=== PATIENT | male | born 1950 | race Caucasian/White ===

== ENCOUNTER 2020-08-19 19:27 | Emergency (ER) | payer BC, OTHER ==
[~2020-08-19] VITALS: Ht 177.8 cm; Wt 72.6 kg
[2020-08-19] MEDS ORDERED: OXYMETAZOLINE HCL 0.05 % NASAL SPRAY 15ML EACHNOSTRI ONE ×2 (20:00)
[2020-08-19 20:26] LABS: Basophils # (auto) 0 10 ^3/uL (0-0.2); Monocytes # (auto) 0.6 10 ^3/uL (0-1.3)
[2020-08-19 20:28] LABS: Basophils % (auto) 0.3 % (0.0-2.0); Eosinophils # (auto) 0.1 10 ^3/uL (0-0.8); Eosinophils % (auto) 0.5 % (0.0-7.0); Hematocrit 20.2 % (41.0-53.0); Lymphocytes # (auto) 2.3 10 ^3/uL (0.4-5.4); Lymphocytes % (auto) 20.6 % (10.0-50.0); Mean Corpuscular Hemoglobin 35.8 pg (28.0-32.0); Mean Corpuscular Hgb Conc. 34.4 g/dL (32.0-36.0); Mean Corpuscular Volume 103.8 fL (80.0-100.0); Monocytes % (auto) 5.4 % (0.0-12.0); Neutrophils % (auto) 73.2 % (37.0-80.0); Nucleated Red Blood Cells % 0.1 %; Red Blood Cells 1.95 10^6/uL (4.5-5.90); Red Cell Distribution Width 13.1 % (11.8-14.3); White Blood Cell 10.9 10^3/uL (4.4-10.8)
[2020-08-19] MEDS ORDERED: SALINE 0.65 % NASAL SPRAY 45ML BOTTLE EACHNOSTRI ONE (20:30)
[2020-08-19 20:41] LABS: Albumin 3.3 g/dL (3.4-5.0); Calcium 8.5 mg/dL (8.5-10.1); Potassium 4.2 mmol/L (3.5-5.1)
[2020-08-19 20:45] LABS: BUN/Creatinine Ratio 23.1; Bilirubin, Total 0.3 mg/dL (0.2-1.0); Total Protein 6.3 g/dL (6.4-8.2)
[2020-08-19 20:46] LABS: INR 1.05 (0.9-1.15); Partial Thromboplastin Time 22.2 sec (23.0-31.2)
[2020-08-19 23:00] VITALS: BP 127/76
[2020-08-19 23:15] VITALS: BP 119/74
[2020-08-20 01:15] VITALS: BP 147/75
[2020-08-20 01:30] VITALS: BP 134/72
[2020-08-20 03:15] VITALS: BP 158/75
== END 2020-08-20 04:47 | disposition home or self-care (01) ==
LOC: ER 19:28
DX: D62 Acute posthemorrhagic anemia (principal); R04.0 Epistaxis
CPT/HCPCS: 36415; 36430; 80053; 85025; 85610; 85730; 86850; 86900; 86901; 86920; 99285; J7040; P9016

== ENCOUNTER 2020-09-04 11:41 | Inpatient (IN) | payer BC, OTHER ==
[~2020-09-04] VITALS: Ht 177.8 cm; Wt 62.5 kg
[2020-09-04] VITALS (12 sets, daily range): BP systolic 107–151; BP diastolic 33–76
[2020-09-04 12:28] LABS: Basophils # (auto) 0 10 ^3/uL (0-0.2); Basophils % (auto) 0.2 % (0.0-2.0); Eosinophils # (auto) 0 10 ^3/uL (0-0.8); Eosinophils % (auto) 0.1 % (0.0-7.0); Mean Corpuscular Volume 105.7 fL (80.0-100.0); Neutrophils # (auto) 5.9 10 ^3/uL (1.6-8.6)
[2020-09-04 12:30] LABS: Lymphocytes # (auto) 1.4 10 ^3/uL (0.4-5.4); Lymphocytes % (auto) 17.6 % (10.0-50.0); Mean Corpuscular Hemoglobin 35.7 pg (28.0-32.0); Mean Corpuscular Hgb Conc. 33.8 g/dL (32.0-36.0); Monocytes # (auto) 0.7 10 ^3/uL (0-1.3); Monocytes % (auto) 8.5 % (0.0-12.0); Neutrophils % (auto) 73.6 % (37.0-80.0); Platelet Count (auto) 225 10^3/uL (140-450); Red Blood Cells 1.42 10^6/uL (4.5-5.90); Red Cell Distribution Width 18.5 % (11.8-14.3)
[2020-09-04 12:35] LABS: Hemoglobin 5.1 g/dL (13.5-17.5)
[2020-09-04 12:42] LABS: Anion Gap 9 (5-15); Blood Urea Nitrogen 52 mg/dL (7-18); Calcium 8.7 mg/dL (8.5-10.1); Carbon Dioxide 22 mmol/L (21-32); Chloride 106 mmol/L (98-107); Glucose 115 mg/dL (74-106); INR 1.01 (0.9-1.15); Partial Thromboplastin Time 20.1 sec (23.0-31.2); Potassium 5.1 mmol/L (3.5-5.1); Sodium 137 mmol/L (136-145)
[2020-09-04 12:48] LABS: Alanine Aminotransferase 44 U/L (16-61); Alkaline Phosphatase 56 U/L (45-117); Aspartate Aminotransferase 25 U/L (15-37); Bilirubin, Total 0.2 mg/dL (0.2-1.0); GFR African American 35 mL/min; GFR Non-African American 29 mL/min; Total Protein 5.8 g/dL (6.4-8.2)
[2020-09-04] MEDS ORDERED: MORPHINE SULF INJ 2 MG/ML SYRINGE 1ML IV PRN (14:45)
[2020-09-04] MEDS ORDERED: NITROGLYCERIN 0.4 MG SL TAB SL PRN (14:45)
[2020-09-04 19:43] LABS: Urine Bacteria NONE SEEN /hpf (None Seen); Urine Blood 1+ /uL (Negative); Urine Budding Yeast MODERATE /hpf (None Seen); Urine Specific Gravity 1.017 (1.001-1.035); Urine WBC 4104 /hpf (0 - 3); Urine WBC Clumps PRESENT /hpf (None Seen)
[2020-09-04] MEDS ORDERED: TEMAZEPAM 15 MG CAP PO ONE (22:00)
[2020-09-04 23:17] LABS: Hematocrit 20.1 % (41.0-53.0)
[2020-09-05] VITALS (11 sets, daily range): BP systolic 101–167; BP diastolic 54–81
[2020-09-05 07:16] LABS: Basophils # (auto) 0 10 ^3/uL (0-0.2); Eosinophils # (auto) 0.1 10 ^3/uL (0-0.8); Lymphocytes # (auto) 1.8 10 ^3/uL (0.4-5.4); Monocytes # (auto) 0.9 10 ^3/uL (0-1.3); Neutrophils % (auto) 62.1 % (37.0-80.0)
[2020-09-05 07:19] LABS: Basophils % (auto) 0.4 % (0.0-2.0); Eosinophils % (auto) 1.1 % (0.0-7.0); Lymphocytes % (auto) 24.4 % (10.0-50.0); Mean Corpuscular Hemoglobin 33.7 pg (28.0-32.0); Mean Corpuscular Hgb Conc. 34.6 g/dL (32.0-36.0); Mean Corpuscular Volume 97.5 fL (80.0-100.0); Neutrophils # (auto) 4.5 10 ^3/uL (1.6-8.6); Nucleated Red Blood Cells % 0.2 %; Platelet Count (auto) 178 10^3/uL (140-450); Red Blood Cells 1.95 10^6/uL (4.5-5.90); Red Cell Distribution Width 19.4 % (11.8-14.3); White Blood Cell 7.3 10^3/uL (4.4-10.8)
[2020-09-05 07:32] LABS: Hemoglobin 6.6 g/dL (13.5-17.5)
[2020-09-05 07:36] LABS: Potassium 4.5 mmol/L (3.5-5.1)
[2020-09-05 07:41] LABS: BUN/Creatinine Ratio 26.1; Calcium 8.1 mg/dL (8.5-10.1)
[2020-09-05 09:03] LABS: % Iron Saturation 12.1 % (20-55)
[2020-09-05 09:15] LABS: Folate (Folic Acid) > 24.00 ng/mL (5.38-24)
[2020-09-05 10:16] LABS: Sodium Urine 41 mmol/L (40-220)
[2020-09-05 10:18] LABS: Creatinine, Urine 72 mg/dL (30.0-125.0)
[2020-09-05 10:23] LABS: Protein, Urine 116.6 mg/dL (0.0-11.9)
[2020-09-05] MEDS: TAMSULOSIN HYDROCHLORIDE 0.4 MG CAP PO SCH (17:37)
[2020-09-05] MEDS: PHENYLEPHRINE HCL 0.5 % NASAL SPRAY 15ML PRN ×2 (17:42→23:27)
[2020-09-05 20:37] LABS: Basophils # (auto) 0 10 ^3/uL (0-0.2); Eosinophils # (auto) 0 10 ^3/uL (0-0.8); Hematocrit 22.6 % (41.0-53.0); Hemoglobin 7.8 g/dL (13.5-17.5); Lymphocytes # (auto) 1.8 10 ^3/uL (0.4-5.4); Nucleated Red Blood Cells % 0.1 %; White Blood Cell 8.3 10^3/uL (4.4-10.8)
[2020-09-05 20:39] LABS: Basophils % (auto) 0.2 % (0.0-2.0); Eosinophils % (auto) 0.4 % (0.0-7.0); Lymphocytes % (auto) 21.3 % (10.0-50.0); Mean Corpuscular Hemoglobin 32.4 pg (28.0-32.0); Mean Corpuscular Hgb Conc. 34.6 g/dL (32.0-36.0); Mean Corpuscular Volume 93.7 fL (80.0-100.0); Monocytes # (auto) 0.9 10 ^3/uL (0-1.3); Monocytes % (auto) 11.1 % (0.0-12.0); Neutrophils # (auto) 5.6 10 ^3/uL (1.6-8.6); Platelet Count (auto) 157 10^3/uL (140-450); Red Blood Cells 2.41 10^6/uL (4.5-5.90); Red Cell Distribution Width 17.8 % (11.8-14.3)
[2020-09-05] MEDS ORDERED: TEMAZEPAM 15 MG CAP PO ONE (22:15)
[2020-09-06 05:00] VITALS: BP 132/80
[2020-09-06 06:48] LABS: Basophils # (auto) 0 10 ^3/uL (0-0.2); Basophils % (auto) 0.2 % (0.0-2.0); Eosinophils # (auto) 0.1 10 ^3/uL (0-0.8); Eosinophils % (auto) 1.7 % (0.0-7.0); Hematocrit 23.1 % (41.0-53.0); Lymphocytes # (auto) 1.9 10 ^3/uL (0.4-5.4); Lymphocytes % (auto) 23.3 % (10.0-50.0); Mean Corpuscular Hemoglobin 32.6 pg (28.0-32.0); Mean Corpuscular Hgb Conc. 34.7 g/dL (32.0-36.0); Mean Corpuscular Volume 94.1 fL (80.0-100.0); Monocytes # (auto) 0.8 10 ^3/uL (0-1.3); Monocytes % (auto) 10.2 % (0.0-12.0); Neutrophils # (auto) 5.4 10 ^3/uL (1.6-8.6); Neutrophils % (auto) 64.6 % (37.0-80.0); Platelet Count (auto) 165 10^3/uL (140-450); Red Blood Cells 2.46 10^6/uL (4.5-5.90); Red Cell Distribution Width 18.1 % (11.8-14.3); White Blood Cell 8.3 10^3/uL (4.4-10.8)
[2020-09-06] MEDS: PHENYLEPHRINE HCL 0.5 % NASAL SPRAY 15ML PRN ×3 (07:02→22:31)
[2020-09-06 07:09] LABS: Potassium 4.1 mmol/L (3.5-5.1)
[2020-09-06 07:14] LABS: BUN/Creatinine Ratio 30.9; Calcium 7.8 mg/dL (8.5-10.1); Phosphorus 4.2 mg/dL (2.5-4.90)
[2020-09-06 09:06] VITALS: BP 135/70
[2020-09-06 13:16] VITALS: BP 137/74
[2020-09-06 16:30] VITALS: BP 134/92
[2020-09-06] MEDS: TAMSULOSIN HYDROCHLORIDE 0.4 MG CAP PO SCH (18:13)
[2020-09-06 22:00] VITALS: BP 144/72
[2020-09-06] MEDS ORDERED: TEMAZEPAM 15 MG CAP PO ONE (22:15)
[2020-09-07 05:00] VITALS: BP 118/67
[2020-09-07 07:35] LABS: Basophils # (auto) 0 10 ^3/uL (0-0.2); Basophils % (auto) 0.2 % (0.0-2.0); Eosinophils # (auto) 0.2 10 ^3/uL (0-0.8); Eosinophils % (auto) 3.2 % (0.0-7.0); Hemoglobin 7.6 g/dL (13.5-17.5); Mean Corpuscular Hemoglobin 32.3 pg (28.0-32.0); Monocytes # (auto) 0.9 10 ^3/uL (0-1.3); Red Cell Distribution Width 18.6 % (11.8-14.3)
[2020-09-07 07:38] LABS: Lymphocytes # (auto) 1.9 10 ^3/uL (0.4-5.4); Lymphocytes % (auto) 24.1 % (10.0-50.0); Mean Corpuscular Hgb Conc. 34.4 g/dL (32.0-36.0); Mean Corpuscular Volume 94.1 fL (80.0-100.0); Monocytes % (auto) 11.9 % (0.0-12.0); Neutrophils # (auto) 4.7 10 ^3/uL (1.6-8.6); Neutrophils % (auto) 60.6 % (37.0-80.0); Platelet Count (auto) 171 10^3/uL (140-450); Red Blood Cells 2.34 10^6/uL (4.5-5.90); White Blood Cell 7.8 10^3/uL (4.4-10.8)
[2020-09-07 07:50] LABS: Calcium 7.9 mg/dL (8.5-10.1); Potassium 4.3 mmol/L (3.5-5.1)
[2020-09-07 07:52] LABS: BUN/Creatinine Ratio 25.7
[2020-09-07 07:53] VITALS: BP 135/77
[2020-09-07 09:00] VITALS: BP 135/77
[2020-09-07] MEDS: PHENYLEPHRINE HCL 0.5 % NASAL SPRAY 15ML PRN (11:43)
[2020-09-07] MEDS ORDERED: TAM04C PO (12:49)
[2020-09-07 13:00] VITALS: BP 140/86
[2020-09-07] MEDS ORDERED: FER325T PO (13:01)
[2020-09-07] MEDS ORDERED: ASCO500T11 PO (13:01)
[2020-09-07 16:58] VITALS: BP 112/79
== END 2020-09-07 16:55 | disposition home health service (06) | DRG 725 ==
LOC: EDBD 11:41 → ER 11:41 → OVERFLOW 11:42 → WEST WING 16:47
PROVIDERS: ADMIT Internal Medicine; ATTEND Internal Medicine
PROC: 30230N1 Transfusion of Nonautologous Red Blood Cells into Peripheral Vein, Open Approach (ICD-10-PCS; principal; 2020-09-04)
DX: N40.1 Benign prostatic hyperplasia with lower urinary tract symptoms (principal); N17.0 Acute kidney failure with tubular necrosis; D62 Acute posthemorrhagic anemia; D68.0 Von Willebrand disease; N13.30 Unspecified hydronephrosis; R04.0 Epistaxis; Z20.822 Contact with and (suspected) exposure to COVID-19; I12.9 Hypertensive chronic kidney disease with stage 1 through stage 4 chronic kidney disease, or unspecified chronic kidney disease; K80.20 Calculus of gallbladder without cholecystitis without obstruction; N18.9 Chronic kidney disease, unspecified; N32.89 Other specified disorders of bladder; Z82.3 Family history of stroke; Z85.828 Personal history of other malignant neoplasm of skin; N39.43 Post-void dribbling
CPT/HCPCS: 36415; 71045; 74176; 76775; 80048; 80053; 81001; 82306; 82570; 82607; 82746; 83540; 83550; 83970; 84100; 84154; 84156; 84300; 84439; 84443; 84484; 84550; 85014; 85018; 85025; 85246; 85610; 85652; 85730; 86850; 86900; 86901; 86920; 87086; 87426; 93005; 99291; G0378

== ENCOUNTER → 2022-03-19 | Emergency (ER) | payer BC, OTHER ==
[~2022-03-19] VITALS: Ht 175.3 cm; Wt 65.4 kg
[~2022-03-19] MED LIST: ASCO500T11 PO; FER325T PO; TAM04C PO; TRAM-297 PO
[2022-03-19 08:44] VITALS: BP 163/95
== END | disposition home or self-care (01) ==
LOC: ER 07:59
DX: M54.32 Sciatica, left side (principal); I10 Essential (primary) hypertension; G89.29 Other chronic pain; R10.9 Unspecified abdominal pain; Z79.899 Other long term (current) drug therapy
CPT/HCPCS: 93971

== ENCOUNTER 2022-03-24 14:42 | Emergency (ER) | payer OTHER ==
[~2022-03-24] VITALS: Ht 177.8 cm; Wt 60.0 kg
[2022-03-24 15:23] VITALS: BP 161/95
[2022-03-24] MEDS ORDERED: ONDANSETRON HCL 4 MG/2 ML VIAL IV ONE (15:45)
[2022-03-24] MEDS ORDERED: PANTOPRAZOLE 40 MG/10 ML VIAL INJ IV ONE ×2 (15:45→16:12)
[2022-03-24] MEDS ORDERED: OMEP-434 PO (15:55)
[2022-03-24 16:05] LABS: Basophils # (auto) 0 10 ^3/uL (0-0.2); Eosinophils # (auto) 0 10 ^3/uL (0-0.8); Monocytes # (auto) 0.8 10 ^3/uL (0-1.3); Red Blood Cells 3.81 10^6/uL (4.5-5.90)
[2022-03-24 16:07] LABS: Basophils % (auto) 0.3 % (0.0-2.0); Eosinophils % (auto) 0.2 % (0.0-7.0); Hemoglobin 9.8 g/dL (13.5-17.5); Lymphocytes # (auto) 0.9 10 ^3/uL (0.4-5.4); Lymphocytes % (auto) 10.6 % (10.0-50.0); Mean Corpuscular Hemoglobin 25.7 pg (28.0-32.0); Mean Corpuscular Hgb Conc. 31.6 g/dL (32.0-36.0); Mean Corpuscular Volume 81.3 fL (80.0-100.0); Monocytes % (auto) 8.8 % (0.0-12.0); Neutrophils % (auto) 80.1 % (37.0-80.0); Red Cell Distribution Width 15.1 % (11.8-14.3); White Blood Cell 8.7 10^3/uL (4.4-10.8)
[2022-03-24] MEDS ORDERED: ONDANSETRON HCL 4 MG/2 ML VIAL ONE (16:12)
[2022-03-24 16:19] LABS: Calcium 10.5 mg/dL (8.5-10.1); Potassium 4.4 mmol/L (3.5-5.1)
[2022-03-24 16:22] LABS: BUN/Creatinine Ratio 15.2; Bilirubin, Total 0.5 mg/dL (0.2-1.0); Total Protein 7.1 g/dL (6.4-8.2)
[2022-03-24 16:35] LABS: INR 1.06 (0.9-1.15); Partial Thromboplastin Time 28.2 sec (24.6-33.4)
[2022-03-24] MEDS ORDERED: PANTOPRAZOLE 40mg/50ML NS AE 50 ML IV ONE (17:00)
== END 2022-03-24 16:20 | disposition left against medical advice (07) ==
LOC: ER 14:42 → EDBD 14:42 → ER 16:20
DX: R19.00 Intra-abdominal and pelvic swelling, mass and lump, unspecified site (principal); I10 Essential (primary) hypertension
CPT/HCPCS: 36415; 80053; 85025; 85610; 85730; 93005; 96374; 96375; 99284; C9113; J2405

== ENCOUNTER 2022-04-29 13:47 | Emergency (ER) | payer OTHER ==
[~2022-04-29] VITALS: Ht 167.6 cm; Wt 120.0 kg
[2022-04-29 13:47] VITALS: BP_SYST 38
[~2022-04-29 13:47] MED LIST changes: +OMEP-434 PO
== END 2022-04-29 20:50 ==
LOC: ER 13:47 → EDBD 13:47 → ER 20:50
DX: R40.20 Unspecified coma (principal); I10 Essential (primary) hypertension; Z79.899 Other long term (current) drug therapy
CPT/HCPCS: 92950